=== PATIENT | female | born 1985 | race Caucasian/White ===

== ENCOUNTER 2020-02-02 14:49 | Emergency (ER) | payer OTHER ==
[~2020-02-02] VITALS: Ht 162.6 cm; Wt 104.3 kg
[2020-02-02] MEDS ORDERED: WELLBUTRIN XL300 MG PO (15:00)
[2020-02-02] MEDS ORDERED: CENTANY30 GM TOP (15:19)
[2020-02-02] MEDS ORDERED: BACTRIM DS TAB1 EACH PO (15:19)
[2020-02-02] MEDS ORDERED: HYDROCODON-ACE1 EAC7 PO (15:19)
[2020-02-02 15:33] VITALS: BP 167/121
== END 2020-02-02 15:34 | disposition home or self-care (01) ==
LOC: M.ERS 14:49
DX: L02.13 Carbuncle of neck (principal); Z98.51 Tubal ligation status; Z90.89 Acquired absence of other organs; Z79.899 Other long term (current) drug therapy; Z88.0 Allergy status to penicillin

== ENCOUNTER 2020-12-17 10:00 | Emergency (ER) | payer OTHER ==
[~2020-12-17] VITALS: Ht 162.6 cm; Wt 106.1 kg
[~2020-12-17 10:00] MED LIST: BACTRIM DS TAB1 EACH PO; CENTANY30 GM TOP; HYDROCODON-ACE1 EAC7 PO; WELLBUTRIN XL300 MG PO
[2020-12-17] MEDS ORDERED: NORVASC 2.5 MG2.5 M1 PO (10:12)
[2020-12-17] MEDS ORDERED: TRUVADA 100 MG1 EACH PO (10:12)
[2020-12-17 10:43] LABS: INFLUENZA A ANTIGEN Negative (Negative); INFLUENZA B ANTIGEN Negative (Negative)
[2020-12-17] MEDS ORDERED: MEDROLDOSEPACK PO (10:59)
[2020-12-17] MEDS ORDERED: TESSALON PERLE100 MG PO (10:59)
[2020-12-17] MEDS ORDERED: PROAIR HFA8.5 GM INH (10:59)
[2020-12-17 11:04] VITALS: BP 170/90
== END 2020-12-17 11:04 | disposition home or self-care (01) ==
LOC: M.ERS 10:00
PROVIDERS: Physician Assistant
DX: J06.9 Acute upper respiratory infection, unspecified (principal); Z20.822 Contact with and (suspected) exposure to COVID-19; Z90.89 Acquired absence of other organs; Z98.51 Tubal ligation status; Z79.899 Other long term (current) drug therapy; Z88.0 Allergy status to penicillin

== ENCOUNTER 2021-02-24 18:10 | Emergency (ER) | payer OTHER ==
[~2021-02-24] VITALS: Ht 162.6 cm; Wt 108.9 kg
[~2021-02-24 18:10] MED LIST changes: +MEDROLDOSEPACK PO; +NORVASC 2.5 MG2.5 M1 PO; +PROAIR HFA8.5 GM INH; +TESSALON PERLE100 MG PO; +TRUVADA 100 MG1 EACH PO
[2021-02-24] MEDS ORDERED: WELLBUTRIN SR150 M1 PO (18:22)
[2021-02-24] MEDS ORDERED: TESSALON PERLE100 MG PO (19:09)
[2021-02-24] MEDS ORDERED: MEDROLDOSEPACK PO (19:09)
[2021-02-24 19:30] VITALS: BP 150/76
== END 2021-02-24 19:30 | disposition home or self-care (01) ==
LOC: M.ERS 18:10
DX: J20.9 Acute bronchitis, unspecified (principal); Z90.89 Acquired absence of other organs; Z98.51 Tubal ligation status; Z79.899 Other long term (current) drug therapy; Z88.0 Allergy status to penicillin